=== PATIENT | female | born 1985 | race Caucasian/White ===

== ENCOUNTER 2021-02-09 22:03 | Emergency (ER) | payer BC ==
[~2021-02-09] VITALS: Ht 170.2 cm; Wt 68.0 kg
--- NOTE | 2021-02-09 23:25 | NUR ---
Enmanuel solomon in [facility] - 02/10/21 at 0420 by SDEDRW Per maya sanderson.
--- NOTE | 2021-02-09 23:25 | NUR ---
Enmanuel solomon in [facility] - 02/10/21 at 0006 by SDEDRW Per maya sanderson.
[2021-02-10 00:27] VITALS: BP_SYST 111
--- NOTE | 2021-02-10 05:00 | NUR ---
Patient to ER bed HALLWAY 1 to gown for evaluation. Side rails up.
--- NOTE | 2021-02-10 05:01 | NUR ---
DR. ROONEY AT BEDSIDE FOR EVALUATION.
--- NOTE | 2021-02-10 05:04 | NUR ---
PATIENT AAOX4 AND AMBULATORY C/O RIGHT LOWER QUADRANT ABDOMINAL PAIN X 5 DAYS. +N/V. HAS BEEN TAKING ADVIL WITH SOME RELIEF BUT PAIN COMES BACK. VSS. DENIES ANY SOB OR CHEST PAIN. - DIARRHEA. HISTORY OF PREVIOUS TUMMY TUCK. CURRENTLY STATING 8/10 ON THE PAIN SCALE.
[2021-02-10] MEDS ORDERED: MORPHINE 4 MG INJ. 4 MG/ML VIAL IVP ONE (05:15)
[2021-02-10] MEDS ORDERED: KETOROLAC TROMETHAMINE 30 MG VIAL IVP ONE (05:15)
[2021-02-10] MEDS ORDERED: ONDANSETRON HCL 4 MG/2 ML VIAL IVP ONE (05:15)
[2021-02-10] MEDS ORDERED: NACL 0.9% 1,000 ML IV ONE (05:15)
[2021-02-10 05:43] LABS: BILIRUBIN,URINE NEGATIVE (NEGATIVE); BLOOD, URINE NEGATIVE (NEGATIVE); CLARITY/URINE CLEAR (CLEAR); COLOR,URINE YELLOW (YELLOW); GLUCOSE,URINE NEGATIVE (NEGATIVE); KETONES,URINE NEGATIVE (NEGATIVE); LEUKOCYTE ESTERASE ,URINE NEGATIVE (NEGATIVE); NITRITE, URINE NEGATIVE (NEGATIVE); PROTEIN URINE NEGATIVE (NEGATIVE); UROBILINOGEN,URINE 0.2 (0.2-1.0)
[2021-02-10 05:52] LABS: BASOPHILS % (AUTO) 0.2 % (0.0-2.0); EOSINOPHILS # (AUTO) 0.2 K/uL (0.0-0.4); EOSINOPHILS % (AUTO) 1.7 % (0.0-4.0); HEMATOCRIT 36.6 % (36-48); HEMOGLOBIN 12.6 g/dL (12.0-16.0); LYMPHOCYTES # (AUTO) 3.4 K/uL (1.0-5.5); LYMPHOCYTES % (AUTO) 31.5 % (20.5-51.5); MEAN CORPUSCULAR HEMOGLOBIN 31 pg (27-31); MEAN CORPUSCULAR HGB CONC 34 % (32-36); MEAN CORPUSCULAR VOLUME 92 fL (79.0-98.0); MONOCYTES # (AUTO) 0.5 K/uL (0.0-1.0); NEUTROPHILS # (AUTO) 6.6 K/uL (1.8-7.7); NEUTROPHILS % (AUTO) 61.6 % (40.0-70.0); PLATELET COUNT (AUTO) 245 K/uL (130-430); RED CELL DISTRIBUTION WIDTH 13.4 % (9.0-15.0); WHITE BLOOD COUNT (AUTO) 10.7 K/uL (4.8-10.8)
[2021-02-10 05:54] LABS: CALCIUM 8.1 mg/dL (8.4-11.0); CREATININE 0.57 mg/dL (0.55-1.30); POTASSIUM 3.7 mmol/L (3.5-5.1)
[2021-02-10 05:59] LABS: ALBUMIN 3.4 g/dL (3.4-4.8); TOTAL BILIRUBIN 0.2 mg/dL (0.0-1.0)
--- NOTE | 2021-02-10 06:00 | NUR ---
# 20 gauge angiocath placed to LEFT AC. Use of asceptic technique. Opsite placed over site. Blood return noted. Blood for lab drawn from site. Flushed with 10 cc of normal saline. No evidence of infiltration noted. Patient tolerated well.
--- NOTE | 2021-02-10 07:10 | NUR ---
REPORT GIVEN TO RHONA FIORE WHO WILL ASSUME ALL CARE OF PATIENT.
--- NOTE | 2021-02-10 07:15 | NUR ---
REPORT RECEIVED FROM RHONA ROJAS. PT RESTING IN [facility], NO DISTRESS, V/S STABLE
[2021-02-10] MEDS ORDERED: IBUP-1969 PO (07:19)
[2021-02-10] MEDS ORDERED: HYDR-3917 PO (07:19)
[2021-02-10 07:36] VITALS: BP_SYST 111
--- NOTE | 2021-02-10 07:37 | NUR ---
Patient given written and verbal discharge instructions and verbalizes understanding. ER MD discussed with patient the results and treatment provided. Patient in stable condition. ID arm band removed. IV catheter removed intact and dressing applied, no active bleeding. Rx of NORCO AND IBUPROFEN given. Patient educated on pain management and to follow up with PMD. Pain Scale 0/10. Opportunity for questions provided and answered. Medication side effect fact sheet provided.
== END 2021-02-10 07:36 | disposition home or self-care (01) ==
LOC: SED 22:03
DX: R10.2 Pelvic and perineal pain (principal); Z79.899 Other long term (current) drug therapy
CPT/HCPCS: 36415; 74176; 76376; 80053; 81003; 83690; 85025; 96361; 96374; 96375; 99284; J1885; J2270; J2405; J7030

== ENCOUNTER 2021-11-26 06:07 | Emergency (ER) | payer BC ==
[~2021-11-26] VITALS: Ht 167.6 cm; Wt 77.1 kg
[~2021-11-26 06:07] MED LIST: HYDR-3917 PO; IBUP-1969 PO
[2021-11-26 07:11] VITALS: BP_SYST 128
--- NOTE | 2021-11-26 07:16 | NUR ---
Patient triaged and placed in waiting room. VS checked and patient appears in no acute distress at this time. Accompanied by self, awaiting available bed, and MD notified of need for MSE.
--- NOTE | 2021-11-26 07:17 | NUR ---
Provided with urine cup for urine sample collection
--- NOTE | 2021-11-26 08:30 | NUR ---
LUZ MARIA Ramos at bedside examining patient.
[2021-11-26 08:58] LABS: BASOPHILS # (AUTO) 0.1 K/uL (0.0-0.2); BASOPHILS % (AUTO) 0.8 % (0.0-2.0); EOSINOPHILS # (AUTO) 0.1 K/uL (0.0-0.4); EOSINOPHILS % (AUTO) 0.5 % (0.0-4.0); HEMATOCRIT 35.8 % (36-48); HEMOGLOBIN 12.2 g/dL (12.0-16.0); LYMPHOCYTES % (AUTO) 26.4 % (20.5-51.5); MEAN CORPUSCULAR HEMOGLOBIN 30 pg (27-31); MEAN CORPUSCULAR HGB CONC 34 % (32-36); MEAN CORPUSCULAR VOLUME 89 fL (79.0-98.0); MONOCYTES # (AUTO) 0.7 K/uL (0.0-1.0); MONOCYTES % (AUTO) 5.9 % (1.7-9.3); NEUTROPHILS # (AUTO) 7.7 K/uL (1.8-7.7); NEUTROPHILS % (AUTO) 66.4 % (40.0-70.0); PLATELET COUNT (AUTO) 283 K/uL (130-430); RED BLOOD CELL COUNT(AUTO) 4.03 MIL/uL (4.2-6.2); RED CELL DISTRIBUTION WIDTH 13.1 % (9.0-15.0); WHITE BLOOD COUNT (AUTO) 11.6 K/uL (4.8-10.8)
[2021-11-26 09:13] LABS: CALCIUM 7.9 mg/dL (8.4-11.0); CREATININE 0.74 mg/dL (0.55-1.30); POTASSIUM 4.1 mmol/L (3.5-5.1)
[2021-11-26 09:27] LABS: ALBUMIN 3.6 g/dL (3.4-4.8); TOTAL BILIRUBIN 0.1 mg/dL (0.0-1.0)
[2021-11-26 09:47] LABS: ERYTHROCYTE SEDIMENTATION RATE 16 MM/HR (0-20)
[2021-11-26 09:50] LABS: BILIRUBIN,URINE NEGATIVE (NEGATIVE); CLARITY/URINE CLEAR (CLEAR); COLOR,URINE YELLOW (YELLOW); GLUCOSE,URINE NEGATIVE (NEGATIVE); KETONES,URINE NEGATIVE (NEGATIVE); LEUKOCYTE ESTERASE ,URINE NEGATIVE (NEGATIVE); NITRITE, URINE NEGATIVE (NEGATIVE); PROTEIN URINE NEGATIVE (NEGATIVE); UROBILINOGEN,URINE 0.2 (0.2-1.0)
[2021-11-26 09:54] LABS: BLOOD, URINE TRACE (NEGATIVE)
[2021-11-26] MEDS ORDERED: MAGNESIUM CITRATE 300 ML ORAL SOLUTION PO ONE (10:30)
--- NOTE | 2021-11-26 10:45 | NUR ---
Assumed care of patient. Patient appears in no acute distress and is A&Ox4. Patient is calm and cooperative, sitting on gurney in hallway.
[2021-11-26 11:07] LABS: BACTERIA,URINE RARE /HPF (None Seen); MUCUS,URINE 1+ /LPF (None Seen); RBC,URINE 0-3 /HPF (0-3); WBC,URINE 0-3 /HPF (0-3)
[2021-11-26] MEDS ORDERED: ACETAMINOPHEN 500 MG TABLET PO ONE (11:45)
[2021-11-26] MEDS ORDERED: DOCU-144 PO (12:10)
[2021-11-26] MEDS ORDERED: POLY17PO4 PO (12:10)
[2021-11-26] MEDS ORDERED: SENN8.6T19 PO (12:10)
--- NOTE | 2021-11-26 12:15 | NUR ---
Patient given written and verbal discharge instructions and verbalizes understanding. ER Dr. Richard YUEN discussed with patient the results and treatment provided. Patient in stable condition. ID arm band removed. Patient educated on pain management and to follow up with PMD. Pain Scale 3/10.Opportunity for questions provided and answered. Medication side effect fact sheet provided.
--- NOTE | 2021-11-26 12:15 | NUR ---
Patient left without signing d/c paperwork.
== END 2021-11-26 12:00 | disposition home or self-care (01) ==
LOC: SED 06:07
DX: K59.00 Constipation, unspecified (principal); G89.29 Other chronic pain; R10.31 Right lower quadrant pain; Z79.899 Other long term (current) drug therapy
CPT/HCPCS: 36415; 74021; 76376; 76856-TC; 80053; 81000; 81025; 83690; 85025; 85651-TC; 99285

== ENCOUNTER 2022-02-23 12:09 | Emergency (ER) | payer BC ==
[~2022-02-23] VITALS: Ht 167.6 cm; Wt 74.8 kg
[~2022-02-23 12:09] MED LIST changes: +DOCU-144 PO; +POLY17PO4 PO; +SENN8.6T19 PO
[2022-02-23 12:42] VITALS: BP_SYST 136
--- NOTE | 2022-02-23 12:49 | NUR ---
BIBS WITH C/C OF NUMBNESS TO RIGHT ARM AND HAND THAT STARTED ON FRIDAY. PT STATED SHE STARTED EXERCISING AND NUMBNESS RESOLVED. NUMBNESS RETURNED ON AND OFF SINCE WITH RIGHT LEG NUMBNESS WHEN RUNNING. PT ALSO REPORTS SWELLING TO BILATERAL FEET. DENIES ANY PAIN, N/V. REPORTS HAVING HEADACHE SINCE FRIDAY. PT SEEN BY DR. MARSH IN TRIAGE ROOM.
--- NOTE | 2022-02-23 14:22 | NUR ---
PT TAKE TO CT.
[2022-02-23 14:47] LABS: BASOPHILS # (AUTO) 0.1 K/uL (0.0-0.2); BASOPHILS % (AUTO) 0.5 % (0.0-2.0); EOSINOPHILS % (AUTO) 0.3 % (0.0-4.0); HEMATOCRIT 35.8 % (36-48); LYMPHOCYTES # (AUTO) 2.8 K/uL (1.0-5.5); LYMPHOCYTES % (AUTO) 24.1 % (20.5-51.5); MEAN CORPUSCULAR VOLUME 89 fL (79.0-98.0); MONOCYTES # (AUTO) 0.4 K/uL (0.0-1.0); MONOCYTES % (AUTO) 3.6 % (1.7-9.3); NEUTROPHILS # (AUTO) 8.4 K/uL (1.8-7.7); NEUTROPHILS % (AUTO) 71.5 % (40.0-70.0); PLATELET COUNT (AUTO) 286 K/uL (130-430); RED BLOOD CELL COUNT(AUTO) 4.05 MIL/uL (4.2-6.2); RED CELL DISTRIBUTION WIDTH 13.5 % (9.0-15.0); WHITE BLOOD COUNT (AUTO) 11.8 K/uL (4.8-10.8)
[2022-02-23 15:18] LABS: ANION GAP 6 (5-15); CALCIUM 8.3 mg/dL (8.4-11.0); CHLORIDE 104 mmol/L (98-107); CREATININE 0.71 mg/dL (0.55-1.30); GLUCOSE 92 mg/dL (70-99); POTASSIUM 3.4 mmol/L (3.5-5.1); SODIUM SERUM 140 mmol/L (136-145); UREA NITROGEN, BLOOD 8 mg/dL (8-21)
[2022-02-23 15:26] LABS: ALANINE AMINOTRANSFERASE 47 U/L (12-78); ALBUMIN 3.4 g/dL (3.4-4.8); ASPARTATE AMINOTRANSFERASE 33 U/L (10-37); TOTAL BILIRUBIN 0.2 mg/dL (0.0-1.0)
[2022-02-23 15:35] LABS: GFR AFRICAN AMERICAN 120 mL/min (>90)
[2022-02-23 15:55] VITALS: BP_SYST 122
--- NOTE | 2022-02-23 15:56 | NUR ---
med cleared for d/c. give aci. no rx. aao x4. reps even and nonlabored. vss. ambulatory with steady gait. nad. instructed to f/u with pcp or return to er for worsening of sx
== END 2022-02-23 15:56 | disposition home or self-care (01) ==
LOC: SED 12:09
DX: R20.2 Paresthesia of skin (principal); R51.9 Headache, unspecified; Z79.899 Other long term (current) drug therapy
CPT/HCPCS: 36415; 70450-TC; 71045; 76376; 80053; 84484; 85025; 99285